=== PATIENT | male | born 1990 | race Caucasian/White ===

== ENCOUNTER 2018-05-16 07:22 | Emergency (ER) | payer OTHER ==
[~2018-05-16] VITALS: Ht 175.3 cm; Wt 65.8 kg
[2018-05-16] MEDS ORDERED: CIPROFLOXIN HC2.5 M1 OPHTHALMIC (08:16)
[2018-05-16 08:34] VITALS: BP 125/40
== END 2018-05-16 08:35 | disposition home or self-care (01) ==
LOC: M.ERS 07:22
DX: T15.91XA Foreign body on external eye, part unspecified, right eye, initial encounter (principal); F17.200 Nicotine dependence, unspecified, uncomplicated; X58.XXXA Exposure to other specified factors, initial encounter; Y92.89 Other specified places as the place of occurrence of the external cause; Y93.89 Activity, other specified; Y99.8 Other external cause status